=== PATIENT | male | born 1990 | race Caucasian/White ===

== ENCOUNTER 2023-02-17 13:50 | Inpatient (IN) | payer OTHER ==
[2023-02-17 15:09] VITALS: BMI 21.8
[2023-02-17] MEDS ORDERED: NALOXONE HCL 0.4 MG/ML VIAL IM PRN (17:05)
[2023-02-17] MEDS ORDERED: LOPERAMIDE HCL 2 MG CAPSULE PO PRN (17:05)
[2023-02-17] MEDS ORDERED: ACETAMINOPHEN 325 MG TABLET (FP) PO PRN (17:05)
[2023-02-17] MEDS ORDERED: POLYETHYLENE GLYCOL (HEALTHYLAX) 3350 17 GM PACKET PO PRN (17:05)
[2023-02-17] MEDS ORDERED: NALOXONE HCL (KLOXXADO) 8 MG SPRAY NS PRN (17:05)
[2023-02-17] MEDS ORDERED: BENZONATATE 200 MG CAPSULE PO PRN (17:05)
[2023-02-17] MEDS ORDERED: BENZOCAINE/MENTHOL (CHLORASEPTIC ) LOZENGE MM PRN (17:05)
[2023-02-17] MEDS ORDERED: IBUPROFEN 400 MG TABLET (FP) PO PRN (17:05)
[2023-02-17] MEDS ORDERED: BISMUTH SUBSALICYLATE 524 MG/30 ML PO PRN (17:05)
[2023-02-17] MEDS ORDERED: MAG HYDROX/AL HYDROX/SIMETH 30 ML UNIT-DOSE CUP PO PRN (17:05)
[2023-02-17] MEDS ORDERED: hydrOXYzine PAMOATE 25 MG CAPSULE (FP) PO PRN (17:05)
[2023-02-17] MEDS ORDERED: MAGNESIUM HYDROX 2400MG/30ML ORAL SUSPENSION 30 ML CUP PO PRN (17:05)
[2023-02-17] MEDS ORDERED: guaiFENesin 600 MG TABLET.ER (FP) PO PRN (17:05)
[2023-02-17] MEDS ORDERED: IBUPROFEN 600 MG TABLET (FP) PO PRN (17:05)
[2023-02-17] MEDS ORDERED: NICOTINE POLACRILEX 2 MG GUM BUC PRN (17:05)
[2023-02-17] MEDS ORDERED: DICYCLOMINE HCL 10 MG CAPSULE PO PRN (17:05)
[2023-02-17] MEDS ORDERED: ONDANSETRON *ODT* 4 MG TABLET SL PRN (17:05)
[2023-02-17] MEDS ORDERED: IBUPROFEN 600 MG TABLET (FP) PO ONE (18:00)
[2023-02-17] MEDS: METHOCARBAMOL 500 MG TABLET PO PRN (19:07)
[2023-02-17] MEDS: MELATONIN 5 MG TABLETS PO SCH (21:49)
[2023-02-17] MEDS: THIAMINE HCL 100 MG TABLET (FP) PO SCH (21:49)
[2023-02-18] MEDS ORDERED: ONDANSETRON 4 MG/2 ML VIAL IM ONE (08:00)
[2023-02-18] MEDS ORDERED: chlordiazePOXIDE HCL 25 MG CAPSULE PO PRN (08:17)
[2023-02-18] MEDS ORDERED: chlordiazePOXIDE HCL 25 MG CAPSULE PO ONE (08:20)
[2023-02-18] MEDS: PRENATAL VITAMINS W/ FOLIC ACID TABLET (FP) PO SCH (10:11)
[2023-02-18] MEDS ORDERED: chlordiazePOXIDE HCL 25 MG CAPSULE PO SCH (11:00)
[2023-02-18 11:04] LABS: HEMATOCRIT 42.9 % (35.4-49); HEMOGLOBIN 14.3 GM/dL (11.7-16.9); MCH 31.5 pg (25.7-33.7); MCHC 33.5 g/dl (32.0-35.9); MEAN CELL VOLUME 94.2 fl (80-96); MEAN PLT VOLUME 7.8 fl (7.5-11.1); PLATELET COUNT 132 10^3/uL (134-434); RBC 4.55 M/mm3 (4.00-5.60); RDW 13.9 % (11.9-15.9); WHITE BLOOD COUNT 6.3 K/mm3 (4.0-10.0)
[2023-02-18 11:12] LABS: CHLORIDE 94 mmol/L (98-107); SODIUM 138 mmol/L (136-145)
[2023-02-18 11:16] LABS: CALCIUM 9.5 mg/dL (8.5-10.1)
[2023-02-18 11:17] LABS: ALBUMIN 4.8 g/dl (3.4-5.0); ANION GAP 14 MMOL/L (8-16); BLOOD UREA NITROGEN 8.2 mg/dL (7-18); CO2 30 mmol/L (21-32); GLUCOSE,RANDOM 85 mg/dL (74-106)
[2023-02-18 11:20] LABS: CREATININE 0.8 mg/dL (0.55-1.3); SGOT/AST 176 U/L (15-37); SGPT/ALT 131 U/L (13-61)
[2023-02-18 11:21] LABS: BILIRUBIN,TOTAL 1.5 mg/dL (0.2-1)
[2023-02-18 11:23] LABS: ALK PHOS 97 U/L (45-117)
[2023-02-18] MEDS ORDERED: LORazepam 1 MG TABLET PO PRN (13:05)
[2023-02-18] MEDS ORDERED: POTASSIUM CHLORIDE ORAL LIQUID 20 MEQ/15 ML PO ONE ×2 (14:00→18:00)
[2023-02-18] MEDS: LORazepam 2 MG TABLET PO SCH ×2 (18:09→22:05)
[2023-02-18] MEDS: QUEtiapine FUMARATE 100 MG TABLET (FP) PO SCH (22:05)
[2023-02-18] MEDS: traZODone HCL 50 MG TABLET (FP) PO SCH (22:05)
[2023-02-18] MEDS: MELATONIN 5 MG TABLETS PO SCH (22:05)
[2023-02-18] MEDS: THIAMINE HCL 100 MG TABLET (FP) PO SCH (22:05)
[2023-02-19] MEDS: LORazepam 2 MG TABLET PO SCH ×4 (05:19→22:13)
[2023-02-19] MEDS ORDERED: traZODone HCL 50 MG TABLET (FP) PO SCH (10:00)
[2023-02-19] MEDS: PRENATAL VITAMINS W/ FOLIC ACID TABLET (FP) PO SCH (10:13)
[2023-02-19] MEDS: QUEtiapine FUMARATE 25 MG TABLET PO SCH (10:13)
[2023-02-19 15:06] LABS: POTASSIUM 3.1 mmol/L (3.5-5.1)
[2023-02-19 15:07] LABS: CALCIUM 9.4 mg/dL (8.5-10.1)
[2023-02-19 15:09] LABS: ALBUMIN 4.8 g/dl (3.4-5.0); BLOOD UREA NITROGEN 8.4 mg/dL (7-18)
[2023-02-19 15:12] LABS: CREATININE 0.8 mg/dL (0.55-1.3)
[2023-02-19 15:13] LABS: BILIRUBIN,TOTAL 1.3 mg/dL (0.2-1); TOT PROT 7.9 g/dl (6.4-8.2)
[2023-02-19] MEDS: MELATONIN 5 MG TABLETS PO SCH (22:11)
[2023-02-19] MEDS: traZODone HCL 50 MG TABLET (FP) PO SCH (22:12)
[2023-02-19] MEDS: QUEtiapine FUMARATE 100 MG TABLET (FP) PO SCH (22:12)
[2023-02-19] MEDS: THIAMINE HCL 100 MG TABLET (FP) PO SCH (22:12)
[2023-02-20] MEDS ORDERED: chlordiazePOXIDE HCL 25 MG CAPSULE PO SCH (05:00)
[2023-02-20] MEDS: LORazepam 1 MG TABLET PO SCH ×4 (05:24→22:14)
[2023-02-20] MEDS: PRENATAL VITAMINS W/ FOLIC ACID TABLET (FP) PO SCH (10:17)
[2023-02-20] MEDS: QUEtiapine FUMARATE 25 MG TABLET PO SCH (10:18)
[2023-02-20] MEDS: POTASSIUM CHLORIDE ORAL LIQUID 20 MEQ/15 ML PO SCH ×2 (13:45→22:14)
[2023-02-20] MEDS: MELATONIN 5 MG TABLETS PO SCH (22:13)
[2023-02-20] MEDS: THIAMINE HCL 100 MG TABLET (FP) PO SCH (22:13)
[2023-02-20] MEDS: traZODone HCL 50 MG TABLET (FP) PO SCH (22:14)
[2023-02-20] MEDS: QUEtiapine FUMARATE 100 MG TABLET (FP) PO SCH (22:14)
[2023-02-21] MEDS ORDERED: LORazepam 0.5 MG TABLET PO PRN
[2023-02-21] MEDS ORDERED: chlordiazePOXIDE HCL 10 MG CAPSULE PO PRN
[2023-02-21] MEDS ORDERED: chlordiazePOXIDE HCL 10 MG CAPSULE PO SCH (05:00)
[2023-02-21] MEDS: LORazepam 0.5 MG TABLET PO SCH ×4 (05:55→22:09)
[2023-02-21] MEDS: QUEtiapine FUMARATE 25 MG TABLET PO SCH (10:03)
[2023-02-21] MEDS: POTASSIUM CHLORIDE ORAL LIQUID 20 MEQ/15 ML PO SCH ×2 (10:03→22:17)
[2023-02-21] MEDS: PRENATAL VITAMINS W/ FOLIC ACID TABLET (FP) PO SCH (10:03)
[2023-02-21] MEDS: QUEtiapine FUMARATE 100 MG TABLET (FP) PO SCH (22:08)
[2023-02-21] MEDS: THIAMINE HCL 100 MG TABLET (FP) PO SCH (22:08)
[2023-02-21] MEDS: METHOCARBAMOL 500 MG TABLET PO PRN (22:08)
[2023-02-21] MEDS: MELATONIN 5 MG TABLETS PO SCH (22:08)
[2023-02-21] MEDS: traZODone HCL 50 MG TABLET (FP) PO SCH (22:08)
[2023-02-22] MEDS ORDERED: chlordiazePOXIDE HCL 10 MG CAPSULE PO SCH (05:00)
[2023-02-22] MEDS ORDERED: LORazepam 0.5 MG TABLET PO ONE (05:00)
[2023-02-22 06:17] VITALS: TEMP 97.7
[2023-02-22 09:28] VITALS: BP 133/84; PULSE 89; RESP 18
[2023-02-22] MEDS: PRENATAL VITAMINS W/ FOLIC ACID TABLET (FP) PO SCH (10:11)
[2023-02-22] MEDS: QUEtiapine FUMARATE 25 MG TABLET PO SCH (10:11)
[2023-02-23] MEDS ORDERED: chlordiazePOXIDE HCL 10 MG CAPSULE PO ONE (05:00)
== END 2023-02-22 12:43 | disposition other institution (70) | DRG 775 ==
LOC: YASAS 13:50 → Y3N 18:23
PROVIDERS: ADMIT Allergy & Immunology; ATTEND Surgery
PROC: HZ2ZZZZ Detoxification Services for Substance Abuse Treatment (ICD-10-PCS; principal; 2023-02-17)
DX: F10.230 Alcohol dependence with withdrawal, uncomplicated (principal); F10.24 Alcohol dependence with alcohol-induced mood disorder; F17.210 Nicotine dependence, cigarettes, uncomplicated; F43.10 Post-traumatic stress disorder, unspecified; F41.1 Generalized anxiety disorder; G47.00 Insomnia, unspecified; E87.6 Hypokalemia; Z88.0 Allergy status to penicillin; Z91.148 Patient's other noncompliance with medication regimen for other reason; Z86.59 Personal history of other mental and behavioral disorders; Z62.810 Personal history of physical and sexual abuse in childhood; Z56.0 Unemployment, unspecified
CPT/HCPCS: 36415; 80053; 80307; 85027; 86780; 87635; 93005; 93010